=== PATIENT | male | born 1975 | race African-American/Black ===

== ENCOUNTER 2017-05-26 02:24 | Emergency (ER) | payer OTHER, SELFPAY ==
--- NOTE | 2017-05-26 04:07 | C.PDOC ---
History Of Present Illness 41 year old male presents to the ED for evaluation of flu like symptoms x2 days. He complains of body aches, cough, sore throat, and ear pain. He denies shortness of breath or chest pain.Patient reports that he was seen by his PMD yesterday with same complaints and discharged on Tamiflu and ibuprofen. Patient states that he is still achey however. No other acute complaints. Time Seen by Provider: 05/26/17 03:27 Chief Complaint (Nursing): Flu-like Symptoms History Per: Patient History/Exam Limitations: no limitations Onset/Duration Of Symptoms: Days Current Symptoms Are (Timing): Still Present Location Of Pain: Ear(s), Throat, Diffuse Myalgias Associated Symptoms: Cough, Myalgias. denies: Fever, Chills Ear Symptoms: Bilateral: Ear Pain Past Medical History Reviewed: Historical Data, Nursing Documentation, Vital Signs Vital Signs: Last Vital Signs Temp 98.8 F 05/26/17 02:50 Pulse 96 H 05/26/17 02:50 Resp 16 05/26/17 02:50 BP 101/69 05/26/17 02:50 Pulse Ox 100 05/26/17 04:18 - Medical History PMH: Hyperthyroidism Family History: States: No Known Family Hx - Social History Hx Alcohol Use: No Hx Substance Use: No - Immunization History Hx Tetanus Toxoid Vaccination: No Hx Influenza Vaccination: Yes Hx Pneumococcal Vaccination: Yes Review Of Systems Constitutional: Negative for: Fever, Chills ENT: Positive for: Ear Pain, Throat Pain Cardiovascular: Negative for: Chest Pain Respiratory: Positive for: Cough. Negative for: Shortness of Breath Gastrointestinal: Negative for: Nausea, Vomiting, Abdominal Pain, Diarrhea Musculoskeletal: Positive for: Other (Diffuse myalgias) Skin: Negative for: Rash Neurological: Negative for: Headache Physical Exam - Physical Exam Appears: Well, Non-toxic, No Acute Distress, Other (Afebrile) Skin: Normal Color, Warm, Dry Head: Atraumatic, Normacephalic Eye(s): bilateral: Normal Inspection, PERRL, EOMI Ear(s): Bilateral: Normal Nose: Normal Oral Mucosa: Moist Throat: Normal Neck: Normal ROM, Supple Chest: Symmetrical Cardiovascular: Rhythm Regular (Rate Regular) Respiratory: Normal Breath Sounds, No Rales, No Rhonchi, No Wheezing Back: Normal Inspection Extremity: Normal ROM, No Deformity Extremity: Bilateral: Atraumatic Neurological/Psych: Oriented x3, Normal Speech Gait: Steady ED Course And Treatment O2 Sat by Pulse Oximetry: 100 Pulse Ox Interpretation: Normal Progress Note: Pt remained stable in no resp distress, VSS, PE unremarkable. Pt instructed in symptomatic treatment, advised good PO hydration. Treatment plan discussed and understood by pt who does agree with plan. Return precautions were discussed Disposition - Disposition Referrals: Shanta Ambrocio MD [Staff Provider] - Disposition: HOME/ ROUTINE Disposition Time: 04:15 Condition: STABLE Additional Instructions: Increase PO fluids Continur tamiflu Continue ibuprofen Gargle with warm salt water/ chloraseptic spray- Use cough drops like halls/ vicks Return to ER if difficulty breathing, weakness, persistent fever or worse Prescriptions: Benzonatate [Tessalon Perles] 100 mg PO TID #20 sgl Cetirizine HCl [Zyrtec] 10 mg PO DAILY #20 capsule Instructions: Flu, Adult (DC) Forms: [facility] (Beninese) - Clinical Impression Clinical Impression: Influenza-like illness - Scribe Statement The provider has reviewed the documentation as recorded by the Scribe (Morales Benton) All medical record entries made by the Scribe were at my direction and personally dictated by me. I have reviewed the chart and agree that the record accurately reflects my personal performance of the history, physical exam, medical decision making, and the department course for this patient. I have also personally directed, reviewed, and agree with the discharge instructions and disposition.
[2017-05-26 04:43] VITALS: BP 122/72; PULSE 80; RESP 20; TEMP 98; O2SAT 98
== END 2017-05-26 04:40 | disposition home or self-care (01) ==
LOC: C.ER 02:24
DX: J11.1 Influenza due to unidentified influenza virus with other respiratory manifestations (principal)